=== PATIENT | female | born 1975 | race Hispanic/Latino ===

== ENCOUNTER 2021-04-04 01:38 | Emergency (ER) | payer SELFPAY ==
[2021-04-04 01:51] VITALS: BP 151/98
--- NOTE | 2021-04-04 02:21 | Emergency Department Report ---
ED General Adult HPI - General Chief complaint: Overdose Stated complaint: OPIOD OD Time Seen by Provider: 04/04/21 02:10 Source: EMS Mode of arrival: Stretcher Limitations: No Limitations - History of Present Illness Initial comments: Patient presents by EMS and police because she overdosed on meth. Apparently police gave her the option to go to [facility] or come here. Patient states that she was in her truck. She had passed out because she was doing heroin. She had meth with her. She saw a flashlight outside the truck. She took the meth out of the bag and swallowed it. She has no idea how much was present. This happened several hours ago. Patient states she she was not try to kill herself. She would just try to keep from getting arrested. Patient admits that she been clean for 4 years. She fell off and started using again. She went to a 60-day program to get off of meth the first time. She is not suicidal homicidal. Has no chest pain shortness of breath. Has no back pain. She is not hearing voices. - Related Data Allergies Allergy/AdvReac Type Severity Reaction Status Date / Time No Known Allergies Allergy Verified 04/04/21 01:51 ED Review of Systems ROS: Stated complaint: OPIOD OD Other details as noted in HPI Comment: All other systems reviewed and negative Constitutional: denies: fever Eyes: denies: vision change ENT: denies: throat pain Respiratory: denies: cough Cardiovascular: denies: chest pain Endocrine: denies: unexplained weight loss Gastrointestinal: denies: abdominal pain Genitourinary: denies: dysuria Musculoskeletal: denies: back pain Skin: denies: rash Neurological: denies: headache Psychiatric: denies: suicidal thoughts Hematological/Lymphatic: denies: easy bruising ED Past Medical Hx - Past Medical History Previous Medical History?: Yes Hx Seizures: Yes Additional medical history: Substance abuse - Family History Family history: no significant ED Physical Exam - General Limitations: No Limitations, Other (Pulse ox noted and normal) General appearance: alert, in no apparent distress - Head Head exam: Present: atraumatic, normocephalic, normal inspection - Eye Eye exam: Present: normal appearance, EOMI. Absent: scleral icterus - ENT ENT exam: Present: mucous membranes dry, normal external ear exam - Neck Neck exam: Present: normal inspection. Absent: meningismus - Respiratory Respiratory exam: Present: normal lung sounds bilaterally. Absent: respiratory distress - Cardiovascular Cardiovascular Exam: Present: regular rate, normal rhythm - GI/Abdominal GI/Abdominal exam: Present: soft. Absent: distended - Extremities Exam Extremities exam: Present: normal capillary refill - Back Exam Back exam: Absent: CVA tenderness (R), CVA tenderness (L) - Neurological Exam Neurological exam: Present: alert, oriented X3, CN II-XII intact, normal gait. Absent: motor sensory deficit - Psychiatric Psychiatric exam: Present: normal affect, normal mood - Skin Skin exam: Present: warm, dry ED Course Vital Signs 04/04/21 01:50 Temperature 98.6 F Pulse Rate 88 Respiratory 18 Rate Blood Pressure 151/98 [Left] O2 Sat by Pulse 97 Oximetry - Reevaluation(s) Reevaluation #1: 04/04/21 02:20 Patient was seen as above. She states she has a sober ride that will come get her. She was discharged. Old records reviewed. ED Medical Decision Making - Medical Decision Making Patient presents because she ingested meth. She was trying to keep from going to [facility]. She is not suicidal homicidal. There is no evidence of acute delusion or psychosis. She is not tweaking. Patient does have a safe place to go with a sober ride. She was discharged. We have had a discussion about substance abuse and outpatient follow-up. Critical Care Time: No Critical care attestation.: If time is entered above; I have spent that time in minutes in the direct care of this critically ill patient, excluding procedure time. ED Disposition Clinical Impression: Methamphetamine abuse, Heroin abuse Disposition: 01 HOME / SELF CARE / HOMELESS Is pt being admited?: No Condition: Stable Instructions: Substance Use Disorder, Methamphetamines Use Disorder, Opioid Use Disorder Additional Instructions: Follow-up with your regular doctor. To drink plenty water. Go to some sort of rehab program to get off of street drugs. Avoid people that are using street drugs. Return for problems. Referrals: PRIMARY [facility] [Referring] - 3-5 Days SCOTT KEN MD [Staff Physician] - 3-5 Days
== END 2021-04-04 03:00 | disposition home or self-care (01) ==
LOC: ED 01:38
DX: F15.10 Other stimulant abuse, uncomplicated (principal); F11.10 Opioid abuse, uncomplicated; Z86.69 Personal history of other diseases of the nervous system and sense organs
CPT/HCPCS: 99282